=== PATIENT | male | born 1975 | race Caucasian/White ===

== ENCOUNTER 2016-11-11 16:30 | Emergency (ER) | payer SELFPAY ==
[~2016-11-11] VITALS: Ht 157.5 cm; Wt 89.0 kg
[~2016-11-11 16:30] MED LIST: CYCL-319 PO; HYDR-906 PO; IBUP-1542 PO
[2016-11-11 16:34] VITALS: Ht 157.5 cm; Wt 89.0 kg
== END 2016-11-11 19:17 | disposition left against medical advice (07) ==
LOC: E/R 16:30
DX: Z53.21 Procedure and treatment not carried out due to patient leaving prior to being seen by health care provider (principal)

== ENCOUNTER 2017-01-30 00:36 | Emergency (ER) | payer OTHER ==
[~2017-01-30] VITALS: Ht 177.8 cm; Wt 102.4 kg
[2017-01-30 00:39] VITALS: Ht 177.8 cm; Wt 102.4 kg
[2017-01-30 01:02] VITALS: BP 142/83; PULSE 86; RESP 19; TEMP 97.8
--- NOTE | 2017-01-30 01:05 | ERD ---
ER Documentation Chief Complaint Chief Complaint palpitations while sleeping 30 minutes ago HPI Patient is a 41-year-old male who presents with sudden onset, constant, moderate palpitations that awoke him from sleep and lasted for approximately 1 minute. He describes them as a rapid heartbeat. He cannot state whether the heartbeat was regular or irregular. He denies chest pain or shortness of breath. He reports having similar episodes approximately 3-4 times per month for the last 2-3 years. He attributes them to anxiety/panic attacks. He has never followed up with a psychiatrist or transportation lead. He states that the symptoms spontaneously resolved after approximately 1 minute. He is currently asymptomatic. He denies presyncope. ROS All systems reviewed and are negative except as per history of present illness. Medications Home Meds Active Scripts Hydrocodone/Acetaminophen ([place] 5-325 Tablet) 1 Each Tablet, 1 TAB PO Q6H Y for PAIN, #20 TAB Prov:DANIEL MCNAIR PA-C 10/31/16 Ibuprofen* (Ibuprofen*) 600 Mg Tablet, 600 MG PO Q6H Y for PAIN, #30 TAB Prov:DANIEL MCNAIR PA-C 10/31/16 Cyclobenzaprine Hcl* (Cyclobenzaprine Hcl*) 10 Mg Tablet, 10 MG PO BID, #20 TAB Prov:DANIEL MCNAIR PA-C 10/31/16 Allergies Allergies: Coded Allergies: Sulfa (Sulfonamide Antibiotics) (Unverified Allergy, Unknown, red, ) PMhx/Soc Past medical history: None Past surgical history: None Social history: Denies tobacco, drinks occasional alcohol, no recent alcohol. No illicit drugs. History of Surgery: No Anesthesia Reaction: No Hx Neurological Disorder: No Hx Respiratory Disorders: No Hx Cardiac Disorders: No Hx Psychiatric Problems: No Hx Miscellaneous Medical Probl: No Hx Alcohol Use: No Hx Substance Use: No Hx Tobacco Use: No FmHx Family History: No coronary disease, No diabetes Physical Exam Vitals Vital Signs Date Time Temp Pulse Resp B/P Pulse Ox O2 Delivery O2 Flow Rate FiO2 01/30/17 01:02 97.8 86 19 142/83 99 Room Air 01/30/17 00:39 97.8 89 20 132/83 98 Physical Exam Const: Alert, no acute distress Head: Atraumatic Eyes: Normal Conjunctiva, No pallor, no icterus ENT: Normal External Ears, Nose and Mouth. Mucous membranes moist Neck: Full range of motion. No JVD Resp: Clear to auscultation bilaterally, No wheezes, no rales Cardio: Regular rate and rhythm, no murmurs Abd: Soft, non tender, non distended. Skin: No petechiae or rashes Back: No midline or flank tenderness Ext: No cyanosis, or edema Neur: Awake and alert, Cranial nerves II through XII intact bilaterally, strength and sensation full in 4 extremities. Psych: Normal Mood and Affect Procedures/MDM EKG read by me: Time 0052, rate 88 Rhythm: Normal sinus Standard: Normal Intervals: Normal ST-T waves: Shallow T-wave inversions in inferior leads only Ectopy: No Q-waves: No Impression: No evidence of ischemia or arrhythmia. No Brugada criteria, no epsilon wave MDM: Patient is a 41-year-old male who presents with a self-limited episode of palpitations lasting approximately 1 minute. There were no associated presyncope, chest pain, or shortness of breath. His symptoms have completely resolved. He has had the same symptoms recurrently for several years, without having had workup performed. He attributes his symptoms to panic attacks. His EKG shows no evidence of ischemia or arrhythmia. I have advised him on return precautions and need for PMD follow-up for possible Holter monitor, as well as follow-up with psychiatry for evaluation of possible anxiety disorder. I do not believe that any laboratory testing or imaging was indicated by the patient' s presentation. Departure Diagnosis: Primary Impression: Palpitations ROCHELLE MOSQUEDA MD Jan 30, 2017 01:05
== END 2017-01-30 01:19 | disposition home or self-care (01) ==
LOC: E/R 00:36
DX: R00.2 Palpitations (principal); R40.2252 Coma scale, best verbal response, oriented, at arrival to emergency department; R40.2142 Coma scale, eyes open, spontaneous, at arrival to emergency department; R40.2362 Coma scale, best motor response, obeys commands, at arrival to emergency department
CPT/HCPCS: 99282

== ENCOUNTER 2017-04-04 00:30 | Emergency (ER) | END 2017-04-04 01:12 | disposition left against medical advice (07) ==

== ENCOUNTER 2017-07-21 01:29 | Emergency (ER) | END 2017-07-21 04:11 | disposition home or self-care (01) ==

== ENCOUNTER 2018-04-07 00:51 | Emergency (ER) | payer OTHER ==
[~2018-04-07] VITALS: Ht 177.8 cm; Wt 98.8 kg
[~2018-04-07 00:51] MED LIST changes: -CYCL-319 PO; +CYCL10TA7 PO; +HYDR-4011 PO; -HYDR-906 PO; +LORA-441 PO
[2018-04-07 00:53] VITALS: Ht 177.8 cm; Wt 98.8 kg
--- NOTE | 2018-04-07 02:16 | ERD ---
ER Documentation Chief Complaint Chief Complaint NON-RADIATING CHEST PAIN X 15 MINUTES HPI Patient is a 42-year-old male with a history of panic attacks who presents with chest pain. He said that he woke up from sleep 20 minutes ago with chest pain. He is currently on antibiotics and pain medicine for dental implant recently placed. He said the chest pain comes and goes. It lasts seconds at a time and then leaves. He said that his mom was concerned and she brought him to the emergency department because he turned yellow. Patient does not currently have a primary doctor. ROS All systems reviewed and are negative except as per history of present illness. Medications Home Meds Active Scripts Lorazepam* (Ativan*) 0.5 Mg Tablet, 0.5 MG PO Q8H PRN for ANXIETY, #10 TAB Prov:HERSON YOUNG 07/21/17 Hydrocodone/Acetaminophen ([place] 5-325 Tablet) 1 Each Tablet, 1 TAB PO Q6H PRN for PAIN, #20 TAB Prov:DANIEL MCNAIR PA-C 10/31/16 Ibuprofen* (Ibuprofen*) 600 Mg Tablet, 600 MG PO Q6H PRN for PAIN, #30 TAB Prov:DANIEL MCNAIR PA-C 10/31/16 Cyclobenzaprine Hcl* (Cyclobenzaprine Hcl*) 10 Mg Tablet, 10 MG PO BID, #20 TAB Prov:DANIEL MCNAIR PA-C 10/31/16 Allergies Allergies: Coded Allergies: Sulfa (Sulfonamide Antibiotics) (Unverified Allergy, Unknown, red, 01/30/17) PMhx/Soc History of Surgery: No Anesthesia Reaction: No Hx Neurological Disorder: No Hx Respiratory Disorders: No Hx Cardiac Disorders: No Hx Psychiatric Problems: No Hx Miscellaneous Medical Probl: No Hx Alcohol Use: No Hx Substance Use: No Hx Tobacco Use: No Smoking Status: Never smoker FmHx Family History: coronary disease Physical Exam Vitals Vital Signs Date Temp Pulse Resp B/P (MAP) Pulse Ox O2 O2 Flow FiO2 Time Delivery Rate 04/07/18 98.4 83 18 127/90 96 Room Air 02:34 (102) 04/07/18 97.2 97 16 158/95 99 00:53 (116) Physical Exam Const: No acute distress Head: Atraumatic Eyes: Normal Conjunctiva ENT: Normal External Ears, Nose and Mouth. Neck: Full range of motion. No meningismus. Resp: Clear to auscultation bilaterally Cardio: Regular rate and rhythm, no murmurs Abd: Soft, non tender, non distended. Normal bowel sounds Skin: No petechiae or rashes Back: No midline or flank tenderness Ext: No cyanosis, or edema Neur: Awake and alert Psych: Anxious Procedures/MDM EKG read by me: Rate/Rhythm: Regular rate and rhythm at a rate of 76 Intervals: Normal Impression: No evidence of ischemia or arrhythmia Chest X-ray 1V Interpreted by me: Soft Tissue: No acute abnormalities Bones: No acute abnormalities Mediastinum/Cardiac Silhouette/Lungs: No acute abnormalities Smoking Cessation Therapy: Pt. was lectured for greater than 3 minutes on the health risks of continued smoking and the benefits of cessation. Patient is a 42-year-old male who presents with chest pain. EKG and chest x-ray were negative. At this point I doubt acute coronary syndrome, pneumonia, pneumothorax, pulmonary embolism, or aortic dissection. I believe outpatient management is appropriate at this time but the patient will need close follow-up with a primary doctor within the next 24-48 hours. He will be given information for the local clinics as he does not currently have a primary doctor. He can return sooner for any worsening symptoms. Departure Diagnosis: Primary Impression: Chest pain Chest pain type: unspecified Qualified Codes: R07.9 - Chest pain, unspecified Condition: Fair Patient Instructions: Chest Pain, Uncertain Cause Referrals: [facility] YOU HAVE RECEIVED A MEDICAL SCREENING EXAM AND THE RESULTS INDICATE THAT YOU DO NOT HAVE A CONDITION THAT REQUIRES URGENT TREATMENT IN THE EMERGENCY DEPARTMENT. FURTHER EVALUATION AND TREATMENT OF YOUR CONDITION CAN WAIT UNTIL YOU ARE SEEN IN YOUR DOCTORS OFFICE WITHIN THE NEXT 1-2 DAYS. IT IS YOUR RESPONSIBILITY TO MAKE AN APPOINTMENT FOR FOLOW-UP CARE. IF YOU HAVE A PRIMARY DOCTOR --you should call your primary doctor and schedule an appointment IF YOU DO NOT HAVE A PRIMARY DOCTOR YOU CAN CALL OUR PHYSICIAN REFERRAL HOTLINE AT IF YOU CAN NOT AFFORD TO SEE A PHYSICIAN YOU CAN CHOSE FROM THE FOLLOWING [facility] [address] [facility] [address] [facility] [address] [facility] [address] [facility] [address] [facility] [address] Additional Instructions: Call your primary care doctor TOMORROW for an appointment during the next 1 WEEK.Tell the director of student financial aid that you were referred from this facility.See the doctor sooner or return here if your condition worsens before your appointment time. ALEJANDRO HASSAN MD Apr 07, 2018 02:16
[2018-04-07 02:34] VITALS: BP 127/90; PULSE 83; RESP 18
== END 2018-04-07 02:35 | disposition home or self-care (01) ==
LOC: E/R 00:51
DX: R07.9 Chest pain, unspecified (principal)
CPT/HCPCS: 71045; 93005; Z7502